=== PATIENT | female | born 1980 | race Caucasian/White ===

== ENCOUNTER 2022-08-24 01:26 | Emergency (ER) | payer OTHER, SELFPAY ==
[2022-08-24 01:34] VITALS: BP 128/78; PULSE 105; RESP 18; TEMP 37.2; O2SAT 99; BMI 30.5
[2022-08-24] MEDS: IBUPROFEN 200 MG TABLET 600 MG PO (01:58)
[2022-08-24] MEDS: AMOXICILLIN/CLAVULANATE 875 mg/125 mg TABLET PO (01:58)
[2022-08-24] MEDS: FAMOTIDINE 20 MG TABLET PO (01:59)
[2022-08-24 02:22] LABS: PCR FLU A POSITIVE PCR FLU A (Negative); PCR FLU B Negative PCR FLU B (Negative)
--- NOTE | 2022-08-24 02:30 | ED_ITS ---
HPI - General Adult General Chief complaint: Ear/Nose/Throat Problem Stated complaint: influenza/ear infection in both ears Time Seen by Provider: 08/24/22 01:27 Source: patient Mode of arrival: ambulatory Limitations: no limitations History of Present Illness HPI narrative: Patient presents with 5 day history of congestion, fatigue, slight ear pain. Ear pain has worsened significantly over the past 24 hours. No drainage noted. She states that her stomach does not tend to tolerate [id number] pain medicines well therefore she only took 1 Tylenol and 1 ibuprofen in the last day and it has not helped her pain. Has not tried any ear drops, warm compresses. She had fever on days 1 and 2 of illness but those have resolved. No dizziness, no dyspnea, no vomiting or diarrhea. Has not been tested for influenza or COVID. No known obvious exposures. She is a former smoker but not a current smoker. Past medical history is notable for moderate persistent asthma, does take inhalers for this. Allergies are reviewed, unchanged, no antibiotic allergies. Socially current nonsmoker. ROS is notable for the generalized, HEENT symptoms as above. Otherwise denies times 12 systems. Related Data Home Medications Medication Instructions Recorded Confirmed fluticasone 500 mcg-salmeterol 50 1 inh inhalation BID 06/17/22 08/24/22 mcg/dose blistr powdr for inhalation (Advair Diskus) fluticasone propionate 50 2 spray intranasal QDAY 06/17/22 08/24/22 mcg/actuation nasal spray,suspension valacyclovir 1 gram tablet 1,000 mg PO QDAY 06/17/22 08/24/22 (Valtrex) Previous Rx's Medication Instructions Recorded albuterol sulfate 90 mcg/actuation 2 puff inhalation Q4-6H PRN 06/18/22 aerosol inhaler shortness of breath or wheezing #8.5 grams amoxicillin 875 mg-potassium 1 tab PO BID #20 tabs 08/24/22 clavulanate 125 mg tablet Allergies Allergy/AdvReac Type Severity Reaction Status Date / Time COVID-19 (SARS-CoV-2) Allergy Severe Anaphylaxis Verified 08/24/22 01:38 vaccine, charanjit sumatriptan Allergy Severe Hypertensio Verified 08/24/22 01:38 n iodine Allergy Mild itching Verified 08/24/22 01:38 shellfish derived Allergy Unknown Unknown Verified 08/24/22 01:38 diagnostic x-ray materials Allergy Unknown Uncoded 06/17/22 11:26 [facility] Medical History Anxiety and depression Asthma GERD (gastroesophageal reflux disease) Herniated cervical disc Herpes labialis History of bipolar disorder Lumbar disc disease with radiculopathy Menometrorrhagia Migraines Pulmonary embolism Tobacco use Trochanteric bursitis of right hip Vertigo Surgical History History of appendectomy History of hysterectomy Social History Smoking Status: Current every day smoker What tobacco products do you use: cigarettes Second hand tobacco smoke exposure: Yes How often do you have a drink containing alcohol: never How often do you have six or more drinks on one occasion: Never AUDIT-C Alcohol total score: 0 Non-prescribed substance use: denies use Exam Const: Vital Signs, click to edit/add: Vital Signs - 24 hr 08/24/22 01:34 Temperature 99.0 F Pulse Rate [Right Pulse Oximeter] 105 H Respiratory Rate 18 Blood Pressure [Ri ght Upper Arm] 128/78 Pulse Oximetry 99 Oxygen Delivery Me thod Room Air Documenting provider has reviewed patient's vital signs: yes Common normals: no apparent distress General appearance: cooperative and well kempt Other: Does not appear acutely ill. HENMT: Common normals: normocephalic Head and scalp: normocephalic Face and sinus: normal facial exam Mouth: oral and palatal mucosa normal Throat: posterior oropharynx normal Other: Right TM with minimal serous effusion only. Left TM red dull, bulging with mucopurulent effusion. Complete loss of light reflex noted. Canal is mildly tender to manipulation. Eye: Common normals: conjunctivae normal Conjunctiva: conjunctiva(e) normal Other: Normal visual tracking Neck & C-Spine: Common normals: full ROM and no lymphadenopathy Resp: Common normals: normal respiratory effort, no use of accessory muscles and clear to auscultation bilaterally Effort & inspection: able to speak in complete sentences Auscultation: clear to auscultation bilaterally Cardio: Common normals: regular rate, regular rhythm, S1 normal heart sound, S2 normal heart sound, no murmurs and peripheral pulses 2+ throughout Rate: regular rate Rhythm: regular rhythm Heart sounds: S1 normal and S2 normal Peripheral pulses: pulses 2+ throughout Neuro: Motor exam: no tremor noted and no movement abnormalities noted Psych: Appearance: well kempt Attitude: engaged Activity/motor behavior: appropriate eye contact Insight: fair Judgement: fair Skin: Common normals: no rashes or lesions noted General skin exam: no rashes or lesions noted Course Vital Signs Vital signs: Initial Vital Signs Temperature 99.0 F 08/24/22 01:34 Temperature Source Temporal Artery Scan 08/24/22 01:34 Pulse Rate 105 H 08/24/22 01:34 Respiratory Rate 18 08/24/22 01:34 Blood Pressure 128/78 08/24/22 01:34 Blood Pressure Mean 94 08/24/22 01:34 Blood Pressure Position Sitting 08/24/22 01:34 Pulse Oximetry 99 08/24/22 01:34 Oxygen Delivery Method 08/24/22 01:34 Vital Signs Temperature 99.0 F 08/24/22 01:34 Pulse Rate 105 H 08/24/22 01:34 Respiratory Rate 18 08/24/22 01:34 Blood Pressure 128/78 08/24/22 01:34 Pulse Oximetry 99 08/24/22 01:34 Oxygen Delivery Method 08/24/22 01:34 Temperature 99.0 F 08/24/22 01:34 Pulse Rate 105 H 08/24/22 01:34 Respiratory Rate 18 08/24/22 01:34 Blood Pressure 128/78 08/24/22 01:34 Pulse Oximetry 99 08/24/22 01:34 Oxygen Delivery Method 08/24/22 01:34 Medical Decision Making MDM Narrative Medical decision making narrative: Counseled patient on findings with the left otitis media. She dramatically explains to me that she cannot take pain medicines because they upset her stomach. The reason with her regarding the risks and benefits of taking pain medication especially since she is in the emergency department at 2 in the morning. She accepts my reasoning. Will dose famotidine 20 mg p.o. x1 to help reduce the GI upset. Ibuprofen 600 mg p.o. x1 and patient will start Augmentin. Risks benefits and side effects discussed. Swabs are pending for influenza, COVID and RSV so that I can student counselor her on contagiousness of the initiating illness. Alarm symptoms properly reviewed. Counseled that she is welcome to use an [id number] antacid to help soothe her stomach, preferably take the medications with food and I have reviewed appropriate dosing for someone her age and size for Tylenol and ibuprofen. I am not willing to prescribe stronger pain medicine since she has not appropriately used [id number] options. 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 No signs of severe illness. Ear infection management as below Lab Data Lab results reviewed: Yes I reviewed the patient's lab results Labs: Lab Results 08/24/22 Range/Units 01:38 SARS-CoV-2 (PCR) Negative SARS-CoV-2 (Negative) Influenza Type A (PCR) POSITIVE PCR FLU A A (Negative) Influenza Type B (PCR) Negative PCR FLU B (Negative) Discharge Plan Discharge Clinical Impression: Otitis media Patient Disposition: Home, Self-Care Condition: Stable Instructions: Ear Infection (ED) Additional Instructions: Your going to have to take a proper amount of medication to treat your pain. I have given you a dose of famotidine to help your stomach. I would recommend that you pick some up [id number] and take 20 mg once daily. This is also sold as branded Pepcid. The omeprazole would be fine as an alternative. A proper dose of ibuprofen is 600 mg every 6 hours, alternating with Tylenol 1000 mg every 6 hours. You can switch between the 2 every 3 hours. ear infections can be quite painful. They should start to improve after about 2 days on the antibiotic. Apply warm compresses if the pain is still bothersome. 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 Loose stools are common, it is okay to take Imodium if this occurs. If her ear is not improving in 5 days, make a follow-up with the clinic. My nurse will let you know the results of the influenza swab. This would not change our management today as you are not a candidate for Tamiflu based on the duration of your illness. Ear infections are not contagious. Activity Level: Activity as Tolerated Discharge Diet: Regular Prescriptions: New amoxicillin-pot clavulanate 875-125 mg tablet 1 tab PO BID Qty: 20 0RF No Action fluticasone propionate 50 mcg/actuation spray,suspension 2 spray intranasal QDAY Rx Instructions: administer into each nostril fluticasone propion-salmeterol [Advair Diskus] 500-50 mcg/dose blister with device 1 inh inhalation BID valacyclovir [Valtrex] 1 gram tablet 1,000 mg PO QDAY albuterol sulfate 90 mcg/actuation HFA aerosol inhaler 2 puff inhalation Q4-6H PRN (Reason: shortness of breath or wheezing) Qty: 8.5 5RF Stand Alone Forms: MyHealth Info Instructions
[2022-08-24 02:52] LABS: SARS PCR* Negative SARS-CoV-2 (Negative)
[2022-08-24 03:01] VITALS: BP 118/74; PULSE 98; RESP 18; TEMP 37.2; O2SAT 99
[2022-08-24 03:02] VITALS: TEMP 36.9
[2022-08-24 03:07] VITALS: BP 118/74; PULSE 98; RESP 18; TEMP 36.9
== END 2022-08-24 03:07 | disposition home or self-care (01) ==
PROVIDERS: Emergency Provider Family Medicine
DX: H66.93 Otitis media, unspecified, bilateral (principal)
CPT/HCPCS: 87631; 99283; 99284; A9270

== ENCOUNTER 2022-11-10 10:55 | Outpatient (CLI) | payer OTHER, SELFPAY ==
[2022-11-11 11:40] LABS: Cholesterol* 168 mg/dL (90-199); Glucose* 117 mg/dL (60-115); Triglycerides* 69 mg/dL (40-149)
[2022-11-11 11:41] LABS: HDL Cholesterol* 87 mg/dL (>=50); LDL Cholesterol Calculated 67 mg/dL (<100)
[2022-11-11 11:57] LABS: Vitamin D 25 Hydroxy* 33 ng/mL (30-80)
[2022-11-14 19:26] LABS: PT PCR Specimen Whole Blood; Prothrombin(F2)G20210A Variant Negative
== END 2022-11-10 10:56 | disposition home or self-care (01) ==
PROVIDERS: Visit Provider Physician Assistant
DX: Z01.419 Encounter for gynecological examination (general) (routine) without abnormal findings (principal); R53.83 Other fatigue; E66.9 Obesity, unspecified; F32.A Depression, unspecified; F41.9 Anxiety disorder, unspecified; Z13.1 Encounter for screening for diabetes mellitus; Z83.2 Family history of diseases of the blood and blood-forming organs and certain disorders involving the immune mechanism; Z13.6 Encounter for screening for cardiovascular disorders
CPT/HCPCS: 80061; 81240; 82306; 82947; 84443

== ENCOUNTER 2025-06-26 11:29 | Outpatient (CLI) | payer OTHER, SELFPAY | END 2025-06-26 11:30 | disposition home or self-care (01) | LOC: FRMREF 11:29 | PROVIDERS: PCP Family Medicine; Visit Provider Physician Assistant Medical | DX: G89.29 Other chronic pain (principal); M25.551 Pain in right hip; M25.552 Pain in left hip; R53.83 Other fatigue; Z13.9 Encounter for screening, unspecified | CPT/HCPCS: 80053; 80061; 82306; 82607; 82728; 84443; 86200; 86431; 86618 ==